=== PATIENT | female | born 1970 | race Caucasian/White ===

== ENCOUNTER 2017-05-13 00:02 | Emergency (ER) | payer BC ==
[~2017-05-13] VITALS: Ht 160 cm; Wt 72.6 kg
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
== END 2017-05-13 02:36 | disposition home or self-care (01) ==
LOC: CED 00:02
DX: S39.012A Strain of muscle, fascia and tendon of lower back, initial encounter (principal); Z88.0 Allergy status to penicillin; Z88.2 Allergy status to sulfonamides; F17.200 Nicotine dependence, unspecified, uncomplicated; V29.9XXA Motorcycle rider (driver) (passenger) injured in unspecified traffic accident, initial encounter
CPT/HCPCS: 72072; 99284